=== PATIENT | male | born 1960 | race Caucasian/White ===

== ENCOUNTER 2024-03-31 17:54 | Emergency (ER) | payer BC ==
[2024-03-31] MEDS ORDERED: Sodium Chloride 0.9% 10 ML Syringe FLUSH PRN (20:18)
[2024-03-31] MEDS: Ondansetron 4 MG/2 ML SDV IVPUSH ONE (20:23)
[2024-03-31 20:32] LABS: BASOPHILS PERCENT AUTO 0.2 % (0.0-1.0); EOSINOPHILS PERCENT AUTO 0.2 % (1.0-3.0); HEMATOCRIT 46.9 % (40.0-54.0); HEMOGLOBIN 15.5 g/dL (14.0-18.0); LYMPHOCYTES PERCENT AUTO 9.5 % (20.5-50.1); MEAN CORPUSCULAR HEMOGLOBIN 32.2 pg (27.0-34.0); MEAN CORPUSCULAR VOLUME 97.3 fL (80-100); MONOCYTES PERCENT AUTO 9.6 % (2-8); NEUTROPHILS PERCENT AUTO 80.5 % (42.2-75.2); PLATELET COUNT,PLT 261 10^3/uL (150-450); RED BLOOD CELL COUNT 4.82 10^6/uL (4.6-6.2); WHITE BLOOD CELL COUNT,WBC 25.4 10^3/uL (5.0-10.0)
[2024-03-31 20:52] LABS: PROTHROMBIN TIME 10.8 SEC (9.0-12.0); PTT,PARTIAL THROMBOPLSTIN TIME 22.3 SEC (22.0-34.0)
[2024-03-31 20:57] LABS: LACTIC ACID 2.3 mmol/L (0.4-2.0)
[2024-03-31 21:01] LABS: A/G RATIO 1.3; ALBUMIN 4.1 g/dL (3.4-5.0); BILIRUBIN TOTAL 1.3 mg/dL (0.2-1.0); BUN/CREATININE RATIO 22.6 (No establ ref range); C-REACTIVE PROTEIN 3.96 ng/dL (<=0.50); CALCIUM 9.1 mg/dL (8.5-10.1); CREATININE 1.24 mg/dL (0.70-1.30); EST CRCL DRUG DOSING (CG) 63.78 mL/min; PROTEIN TOTAL,TP 7.3 g/dL (6.4-8.2)
[2024-03-31] MEDS: HYDROmorphone 1 MG/ML Syringe IVPUSH ONE ×2 (21:01→22:17)
[2024-03-31 21:03] LABS: APPEARANCE,URINE CLEAR (CLEAR); BILIRUBIN,URINE NEGATIVE (NEGATIVE); COLOR,URINE YELLOW (YELLOW); GLUCOSE,URINE NEGATIVE (NEGATIVE); KETONES,URINE NEGATIVE (NEGATIVE); LEUKOCYTE ESTERASE,URINE NEGATIVE (NEGATIVE); NITRITE,URINE NEGATIVE (NEGATIVE); OCCULT BLOOD,URINE NEGATIVE (NEGATIVE); PROTEIN,URINE 30 (NEGATIVE); UROBILINOGEN,URINE 0.2 mg/dL (0.2-1.0)
[2024-03-31] MEDS: Iopamidol 612 MG/ML 100 ML Bottle IVPUSH ONE (21:06)
[2024-03-31] MEDS: diphenhydrAMINE 50 MG/ML SDV IVPUSH ONE (21:11)
[2024-03-31] MEDS: methylPREDNISolone Sodium Succinate 125 MG/2 ML SDV IVPUSH ONE (21:11)
[2024-03-31 21:13] LABS: EPITHELIAL CELLS,URINE RARE /HPF (NOT SEEN); RBC,URINE 0-5 /HPF (0-5); WBC,URINE 0-5 /HPF (0-5/HPF)
[2024-03-31 21:14] LABS: BACTERIA,URINE FEW /HPF (0-FEW/HPF); MUCUS,URINE FEW /LPF (NOT SEEN)
[2024-03-31] MEDS: metroNIDAZOLE/Normal Saline 500 MG in Premix Bag 1 BAG IV ONE (22:17)
[2024-03-31] MEDS: Sodium Chloride 0.9% 500 ML IV SCH (22:26)
[2024-03-31] MEDS: Cefepime 2 GM Vial IVPUSH ONE (22:31)
[2024-03-31] MEDS ORDERED: Lactated Ringers 1,000 ML IV ONE (22:41)
[2024-03-31 23:16] VITALS: BP 129/70; PULSE 106
== END 2024-03-31 23:08 ==
LOC: DL.ED 17:54
DX: K57.20 Diverticulitis of large intestine with perforation and abscess without bleeding (principal); I10 Essential (primary) hypertension; E78.00 Pure hypercholesterolemia, unspecified; Z88.8 Allergy status to other drugs, medicaments and biological substances; Z91.041 Radiographic dye allergy status; Z88.0 Allergy status to penicillin; Z79.899 Other long term (current) drug therapy
CPT/HCPCS: 36415; 74177; 80053; 81001; 83605; 83690; 85025; 85610; 85730; 86140; 87040; 96365; 96375; 96376; 99285; J0692; J1171; J1200; J1836; J2405; J2919; J7040; Q9967

== ENCOUNTER 2024-04-21 06:51 | Emergency (ER) | payer BC ==
[2024-04-21 07:35] LABS: BASOPHILS PERCENT AUTO 0.7 % (0.0-1.0); EOSINOPHILS PERCENT AUTO 5.7 % (1.0-3.0); HEMATOCRIT 30.6 % (40.0-54.0); HEMOGLOBIN 10.3 g/dL (14.0-18.0); LYMPHOCYTES PERCENT AUTO 24.6 % (20.5-50.1); MEAN CORPUSCULAR HEMOGLOBIN 31.9 pg (27.0-34.0); MEAN CORPUSCULAR HGB CONC 33.7 g/dL (33.0-35.0); MEAN CORPUSCULAR VOLUME 94.7 fL (80-100); PLATELET COUNT,PLT 582 10^3/uL (150-450); RED BLOOD CELL COUNT 3.23 10^6/uL (4.6-6.2); WHITE BLOOD CELL COUNT,WBC 17.8 10^3/uL (5.0-10.0)
[2024-04-21] MEDS: HYDROmorphone 0.5 MG/0.5 ML Syringe IVPUSH ONE (07:39)
[2024-04-21] MEDS: Ondansetron 4 MG/2 ML SDV IVPUSH ONE (07:41)
[2024-04-21] MEDS: Sodium Chloride 0.9% 1,000 ML IV SCH (07:46)
[2024-04-21 07:55] LABS: ALBUMIN 2.7 g/dL (3.4-5.0); ANION GAP 16.4 mEq/L (7-13); BILIRUBIN DIRECT 0.1 mg/dL (0.0-0.2); BILIRUBIN INDIRECT 0.3; BILIRUBIN TOTAL 0.4 mg/dL (0.2-1.0); CALCIUM 8.6 mg/dL (8.5-10.1); CREATININE 1.13 mg/dL (0.70-1.30); EST CRCL DRUG DOSING (CG) 72.19 mL/min; POTASSIUM,K 4.4 mmol/L (3.5-5.1); PROTEIN TOTAL,TP 6.3 g/dL (6.4-8.2)
[2024-04-21 07:56] LABS: A/G RATIO 0.75
[2024-04-21 07:58] LABS: INR 1.1 (0.9-1.2); PROTHROMBIN TIME 11.4 SEC (9.0-12.0)
[2024-04-21 07:59] LABS: LACTIC ACID 2.2 mmol/L (0.4-2.0)
[2024-04-21 09:41] VITALS: BP 115/73; PULSE 90
== END 2024-04-21 09:46 | disposition home or self-care (01) ==
LOC: DL.ED 06:51
DX: K57.92 Diverticulitis of intestine, part unspecified, without perforation or abscess without bleeding (principal); I10 Essential (primary) hypertension; E66.9 Obesity, unspecified; Z68.30 Body mass index [BMI] 30.0-30.9, adult; Z88.0 Allergy status to penicillin; Z88.1 Allergy status to other antibiotic agents; Z88.8 Allergy status to other drugs, medicaments and biological substances; Z91.048 Other nonmedicinal substance allergy status; Z79.899 Other long term (current) drug therapy
CPT/HCPCS: 36415; 80048; 80076; 82150; 83605; 83690; 85025; 85610; 93005; 93010; 96361; 96374; 96375; 99284; J2405; J7030

== ENCOUNTER 2024-04-22 12:04 | Emergency (ER) | payer BC ==
[2024-04-22] MEDS ORDERED: Sodium Chloride 0.9% 10 ML Syringe FLUSH PRN (12:17)
[2024-04-22 12:37] LABS: EOSINOPHILS PERCENT AUTO 4.3 % (1.0-3.0); HEMATOCRIT 27.5 % (40.0-54.0); HEMOGLOBIN 8.9 g/dL (14.0-18.0); LYMPHOCYTES PERCENT AUTO 20.4 % (20.5-50.1); MEAN CORPUSCULAR HEMOGLOBIN 30.9 pg (27.0-34.0); MEAN CORPUSCULAR HGB CONC 32.4 g/dL (33.0-35.0); MEAN CORPUSCULAR VOLUME 95.5 fL (80-100); MONOCYTES PERCENT AUTO 15.2 % (2-8); NEUTROPHILS PERCENT AUTO 59.1 % (42.2-75.2); PLATELET COUNT,PLT 494 10^3/uL (150-450); RED BLOOD CELL COUNT 2.88 10^6/uL (4.6-6.2); WHITE BLOOD CELL COUNT,WBC 15.2 10^3/uL (5.0-10.0)
[2024-04-22] MEDS: 50% Dextrose in Water 50 ML Syringe IVPUSH ONE (12:51)
[2024-04-22 12:54] LABS: INR 1.2 (0.9-1.2)
[2024-04-22 13:01] LABS: ALANINE AMINOTRANSFERASE,ALT 27 U/L (16-63); ALBUMIN 2.8 g/dL (3.4-5.0); ALKALINE PHOSPHATASE 76 U/L (46-116); ANION GAP 16.3 mEq/L (7-13); ASPARTATE AMNIOTRANSFERASE,AST 13 U/L (15-37); BILIRUBIN TOTAL 0.4 mg/dL (0.2-1.0); BLOOD UREA NITROGEN,BUN 25 mg/dL (7-18); BUN/CREATININE RATIO 21.4 (No establ ref range); CALCIUM 8.7 mg/dL (8.5-10.1); CARBON DIOXIDE,CO2 24 mmol/L (21-32); CHLORIDE,CL 101 mmol/L (98-107); CREATININE 1.17 mg/dL (0.70-1.30); GLUCOSE RANDOM 114 mg/dL (70-99); POTASSIUM,K 4.3 mmol/L (3.5-5.1); PROTEIN TOTAL,TP 6.4 g/dL (6.4-8.2); SODIUM,NA 137 mmol/L (136-145)
[2024-04-22 13:04] LABS: A/G RATIO 0.78; ESTIMATED GFR 70 mL/min (>=60)
[2024-04-22] MEDS: Pantoprazole 40 MG in Sodium Chloride 0.9% 100 ML IV SCH (14:32)
[2024-04-22] MEDS: Ondansetron 4 MG/2 ML SDV IVPUSH ONE ×2 (14:32→19:36)
[2024-04-22] MEDS: Sodium Chloride 0.9% 10 ML Syringe FLUSH PRN (14:33)
[2024-04-22] MEDS: Acetaminophen 325 MG Tab PO ONE (17:30)
[2024-04-22 20:01] VITALS: BP 108/70; PULSE 98
== END 2024-04-22 20:00 ==
LOC: DL.ED 12:04
DX: K92.2 Gastrointestinal hemorrhage, unspecified (principal); D64.9 Anemia, unspecified; I10 Essential (primary) hypertension; E66.9 Obesity, unspecified; Z88.0 Allergy status to penicillin; Z88.1 Allergy status to other antibiotic agents; Z88.8 Allergy status to other drugs, medicaments and biological substances; Z91.048 Other nonmedicinal substance allergy status; Z79.899 Other long term (current) drug therapy
CPT/HCPCS: 36415; 36430; 71045; 80053; 82272; 84484; 85025; 85610; 86850; 86900; 86901; 86920; 86922; 93005; 96374; 96375; 99285; A9270; J2405; J2470; P9016; 93010